=== PATIENT | female | born 1990 | race Caucasian/White ===

== ENCOUNTER 2016-09-12 13:22 | Emergency (ER) | payer OTHER ==
[2016-09-12 16:30] VITALS: BP 114/65
== END 2016-09-12 16:30 | disposition home or self-care (01) ==
LOC: ED 13:22
DX: J20.9 Acute bronchitis, unspecified (principal); E11.9 Type 2 diabetes mellitus without complications; J45.909 Unspecified asthma, uncomplicated; E66.01 Morbid (severe) obesity due to excess calories; Z88.0 Allergy status to penicillin; Z88.1 Allergy status to other antibiotic agents; Z88.5 Allergy status to narcotic agent
CPT/HCPCS: J7512; J7620

== ENCOUNTER 2017-01-28 16:38 | Emergency (ER) | payer OTHER ==
[2017-01-28 18:13] LABS: BASOPHIL % 1.1 % (0-2); PLATELET COUNT 281 x10^3mcL (130-400); RED CELL DISTRIBUTION WIDTH 15.3 % (11.5-14.5)
[2017-01-28 18:21] LABS: CALCIUM 9.1 mg/dL (8.5-10.1); CARBON DIOXIDE 21.3 mmol/L (21-32); CHLORIDE SERUM 110 mmol/L (98-107); CREATININE SERUM 0.8 mg/dL (0.6-1.0); GFR1 > 60 mL/min; GLUCOSE SERUM 135 mg/dL (74-106); POTASSIUM SERUM 3.5 mmol/L (3.5-5.1); SODIUM SERUM 146 mmol/L (136-145)
[2017-01-28 18:27] LABS: ALBUMIN 3.4 g/dL (3.4-5.0); ALKALINE PHOSPHATASE 89 U/L (46-116); ALT/SGPT 21 U/L (14-59); AST/SGOT 10 U/L (15-37); TOTAL PROTEIN, SERUM 7.6 g/dL (6.4-8.2)
[2017-01-28 21:18] VITALS: BP 107/68
== END 2017-01-28 21:18 | disposition home or self-care (01) ==
LOC: ED 16:38
PROVIDERS: Emergency Medicine
DX: J45.901 Unspecified asthma with (acute) exacerbation (principal); E11.9 Type 2 diabetes mellitus without complications; F41.9 Anxiety disorder, unspecified; K31.9 Disease of stomach and duodenum, unspecified; Z79.84 Long term (current) use of oral hypoglycemic drugs; Z79.899 Other long term (current) drug therapy; Z88.0 Allergy status to penicillin; Z88.1 Allergy status to other antibiotic agents; Z88.5 Allergy status to narcotic agent; Z88.8 Allergy status to other drugs, medicaments and biological substances; Z98.890 Other specified postprocedural states
CPT/HCPCS: 36415; 85378; J1885; J7613; J7644; Q0162

== ENCOUNTER 2017-06-10 20:40 | Emergency (ER) | payer OTHER ==
[~2017-06-10] VITALS: Ht 154.9 cm; Wt 88.9 kg
[2017-06-10 20:53] VITALS: Ht 154.9 cm; Wt 88.9 kg
[2017-06-10 23:49] VITALS: BP 120/78
== END 2017-06-10 23:49 | disposition home or self-care (01) ==
LOC: ED 20:40
DX: M54.9 Dorsalgia, unspecified (principal); M79.1 Myalgia; R03.0 Elevated blood-pressure reading, without diagnosis of hypertension; E11.9 Type 2 diabetes mellitus without complications; J45.909 Unspecified asthma, uncomplicated; Z88.8 Allergy status to other drugs, medicaments and biological substances; Z88.0 Allergy status to penicillin; Z88.1 Allergy status to other antibiotic agents; V89.2XXA Person injured in unspecified motor-vehicle accident, traffic, initial encounter; Y93.89 Activity, other specified; Y99.8 Other external cause status; Y92.89 Other specified places as the place of occurrence of the external cause
CPT/HCPCS: J1885

== ENCOUNTER 2017-06-23 16:36 | Emergency (ER) | payer OTHER ==
[~2017-06-23] VITALS: Ht 152.4 cm; Wt 90.7 kg
[2017-06-23 17:43] VITALS: Ht 152.4 cm; Wt 90.7 kg
[2017-06-23 20:24] VITALS: BP 132/83
== END 2017-06-23 20:24 | disposition home or self-care (01) ==
LOC: ED 16:36
DX: J45.901 Unspecified asthma with (acute) exacerbation (principal); B34.9 Viral infection, unspecified; E11.9 Type 2 diabetes mellitus without complications; Z88.0 Allergy status to penicillin; Z88.1 Allergy status to other antibiotic agents; Z88.5 Allergy status to narcotic agent; Z88.8 Allergy status to other drugs, medicaments and biological substances
CPT/HCPCS: 82962; J7512; J7613; J7644

== ENCOUNTER 2017-07-07 18:18 | Emergency (ER) | payer OTHER ==
[~2017-07-07] VITALS: Ht 154.9 cm; Wt 88.2 kg
[2017-07-07 19:22] VITALS: Ht 154.9 cm; Wt 88.2 kg
[2017-07-07 21:07] LABS: BASOPHIL % 0.7 % (0-2); PLATELET COUNT 211 x10^3mcL (130-400); RED CELL DISTRIBUTION WIDTH 14.2 % (11.5-14.5)
[2017-07-07 21:08] LABS: CALCIUM 8.9 mg/dL (8.5-10.1); CARBON DIOXIDE 22.7 mmol/L (21-32); CHLORIDE SERUM 106 mmol/L (98-107); CREATININE SERUM 0.7 mg/dL (0.6-1.0); GFR1 > 60 mL/min; GLUCOSE SERUM 127 mg/dL (74-106); POTASSIUM SERUM 3.9 mmol/L (3.5-5.1); SODIUM SERUM 140 mmol/L (136-145)
[2017-07-07 21:21] LABS: FREE T4 0.94 ng/dL (0.76-1.46)
[2017-07-07 22:02] VITALS: BP 142/89
[2017-07-08] MEDS ORDERED: GLIPIZIDE10 M2 PO (18:47)
[2017-07-08] MEDS ORDERED: MECLIZINE HYD12.5 MG (18:47)
[2017-07-08] MEDS ORDERED: PROAIR HFA8.5 GM IH (18:48)
[2017-07-08] MEDS ORDERED: TRAZODONE HCL1 POW (18:48)
[2017-07-08] MEDS ORDERED: HYDROXYZINE10 M1 (18:48)
[2017-07-08] MEDS ORDERED: ROBAXIN500 MG (18:49)
[2017-07-08] MEDS ORDERED: TOPAMAX100 MG PO (18:51)
== END 2017-07-07 22:02 | disposition home or self-care (01) ==
LOC: ED 18:18
PROVIDERS: Emergency Medicine
DX: R42 Dizziness and giddiness (principal); J32.9 Chronic sinusitis, unspecified; J45.909 Unspecified asthma, uncomplicated; F41.9 Anxiety disorder, unspecified; K64.9 Unspecified hemorrhoids; E11.43 Type 2 diabetes mellitus with diabetic autonomic (poly)neuropathy; K31.84 Gastroparesis; Z88.0 Allergy status to penicillin; Z88.1 Allergy status to other antibiotic agents; Z88.5 Allergy status to narcotic agent; Z91.041 Radiographic dye allergy status
CPT/HCPCS: 36415; 84439; 87804; J1885; J8597

== ENCOUNTER 2017-07-08 15:07 | Inpatient (IN) | payer OTHER ==
[~2017-07-08] VITALS: Ht 154.9 cm; Wt 79.5 kg
[2017-07-08 15:46] VITALS: Ht 154.9 cm; Wt 79.5 kg
[2017-07-08 17:10] LABS: BASOPHIL % 0.1 % (0-2); PLATELET COUNT 195 x10^3mcL (130-400); RED CELL DISTRIBUTION WIDTH 14.5 % (11.5-14.5)
[2017-07-08 17:14] LABS: UA SPECIFIC GRAVITY >=1.030 (1.005-1.035); microscopic required? YES; urine erythrocyte NEGATIVE (NEGATIVE)
[2017-07-08 17:23] LABS: CALCIUM 9.2 mg/dL (8.5-10.1); CARBON DIOXIDE 22.5 mmol/L (21-32); CHLORIDE SERUM 107 mmol/L (98-107); CREATININE SERUM 0.8 mg/dL (0.6-1.0); GFR1 > 60 mL/min; GLUCOSE SERUM 159 mg/dL (74-106); POTASSIUM SERUM 3.7 mmol/L (3.5-5.1); SODIUM SERUM 142 mmol/L (136-145)
[2017-07-08 17:27] LABS: ALKALINE PHOSPHATASE 97 U/L (46-116); ALT/SGPT 21 U/L (14-59); AST/SGOT 13 U/L (15-37); BILIRUBIN TOTAL 0.3 mg/dL (0.20-1.00); CHOLESTEROL 173 mg/dL (<200); HDL CHOLESTEROL 39 mg/dL (40-60); TOTAL PROTEIN, SERUM 7.4 g/dL (6.4-8.2)
[2017-07-08 17:29] LABS: ALBUMIN 3.3 g/dL (3.4-5.0)
[2017-07-08] MEDS ORDERED: GLIPIZIDE10 M2 PO (18:47)
[2017-07-08] MEDS ORDERED: MECLIZINE HYD12.5 MG (18:47)
[2017-07-08] MEDS ORDERED: TRAZODONE HCL1 POW (18:48)
[2017-07-08] MEDS ORDERED: PROAIR HFA8.5 GM IH (18:48)
[2017-07-08] MEDS ORDERED: HYDROXYZINE10 M1 (18:48)
[2017-07-08] MEDS ORDERED: ROBAXIN500 MG (18:49)
[2017-07-08] MEDS ORDERED: TOPAMAX100 MG PO (18:51)
[2017-07-08 20:13] LABS: CHOLESTEROL/HDL RATIO 4.4; MAGNESIUM 1.8 mg/dL (1.8-2.4); PHOSPHOROUS 4.6 mg/dL (2.5-4.9)
[2017-07-08 20:17] VITALS: BP 126/86
[2017-07-08 20:18] LABS: T3 TOTAL 1.9 ng/mL
[2017-07-08 20:24] VITALS: BP 132/85
[2017-07-08 20:25] LABS: FREE T4 0.94 ng/dL (0.76-1.46); FREE THYROXINE INDEX 2.9 ug/dL (1.4-4.5); T4(THYROXINE) 9.9 ug/dL (4.7-13.3)
[2017-07-09 05:01] VITALS: BP 117/61
[2017-07-09 06:01] VITALS: BP 107/68
[2017-07-09 06:21] LABS: BASOPHIL % 0.1 % (0-2); PLATELET COUNT 201 x10^3mcL (130-400); RED CELL DISTRIBUTION WIDTH 14.3 % (11.5-14.5)
[2017-07-09 06:37] LABS: CALCIUM 8.6 mg/dL (8.5-10.1); CARBON DIOXIDE 18.3 mmol/L (21-32); CHLORIDE SERUM 107 mmol/L (98-107); CREATININE SERUM 0.6 mg/dL (0.6-1.0); GFR1 > 60 mL/min; GLUCOSE SERUM 285 mg/dL (74-106); MAGNESIUM 1.6 mg/dL (1.8-2.4); PHOSPHOROUS 3.1 mg/dL (2.5-4.9); POTASSIUM SERUM 4.2 mmol/L (3.5-5.1); SODIUM SERUM 138 mmol/L (136-145)
[2017-07-09 09:10] VITALS: BP 114/62
[2017-07-09 12:31] VITALS: BP 119/79
[2017-07-09 18:09] VITALS: BP 109/63
[2017-07-09 19:52] LABS: CALCIUM 8.3 mg/dL (8.5-10.1); CARBON DIOXIDE 20.6 mmol/L (21-32); CHLORIDE SERUM 107 mmol/L (98-107); CREATININE SERUM 0.8 mg/dL (0.6-1.0); GFR1 > 60 mL/min; GLUCOSE SERUM 322 mg/dL (74-106); MAGNESIUM 1.8 mg/dL (1.8-2.4); POTASSIUM SERUM 3.6 mmol/L (3.5-5.1); SODIUM SERUM 139 mmol/L (136-145)
[2017-07-09 21:30] VITALS: BP 134/63
[2017-07-10 06:46] LABS: CALCIUM 8.4 mg/dL (8.5-10.1); CARBON DIOXIDE 20.8 mmol/L (21-32); CHLORIDE SERUM 108 mmol/L (98-107); CREATININE SERUM 0.8 mg/dL (0.6-1.0); GFR1 > 60 mL/min; GLUCOSE SERUM 248 mg/dL (74-106); PHOSPHOROUS 3.1 mg/dL (2.5-4.9); SODIUM SERUM 140 mmol/L (136-145)
[2017-07-10 06:52] LABS: PLATELET COUNT 194 x10^3mcL (130-400)
[2017-07-10 06:59] LABS: BASOPHIL % 0 % (0-2); RED CELL DISTRIBUTION WIDTH 14.9 % (11.5-14.5)
[2017-07-10 10:00] VITALS: BP 121/76
[2017-07-10] MEDS ORDERED: COUGH100 MG/5 M PO (10:32)
[2017-07-10] MEDS ORDERED: MEDDP PO (10:33)
[2017-07-10] MEDS ORDERED: GLU10XL PO (10:34)
[2017-07-10] MEDS ORDERED: LEVAQUIN750 MG PO (10:38)
[2017-07-10] MEDS ORDERED: LAC PO (10:39)
[2017-07-10] MEDS ORDERED: NOVOLOG FLEX100 U/M1 SC (10:56)
[2017-07-10] MEDS ORDERED: ACCU-CHEK1 EACH MC (10:57)
[2017-07-10 12:32] VITALS: BP 121/76
[2017-07-10 13:37] VITALS: BP 113/68
[2017-07-10 17:36] VITALS: BP 112/99
[2017-07-10] MEDS ORDERED: HUMULIN R100 U/1 M1 SC (18:01)
[2017-07-10] MEDS ORDERED: QVAR0.08 MG/Ac IH ×2 (18:59→19:02)
== END 2017-07-10 19:19 | disposition home or self-care (01) | DRG 141 ==
LOC: ED 15:07 → DU 18:37
PROVIDERS: Emergency Medicine; Family Medicine
DX: J45.901 Unspecified asthma with (acute) exacerbation (principal); N17.0 Acute kidney failure with tubular necrosis; E44.1 Mild protein-calorie malnutrition; E11.65 Type 2 diabetes mellitus with hyperglycemia; E86.0 Dehydration; N39.0 Urinary tract infection, site not specified; J32.9 Chronic sinusitis, unspecified; R80.9 Proteinuria, unspecified; E78.5 Hyperlipidemia, unspecified; G40.909 Epilepsy, unspecified, not intractable, without status epilepticus; E66.9 Obesity, unspecified; Z68.36 Body mass index [BMI] 36.0-36.9, adult
CPT/HCPCS: 82962; 83880; 84439; 87046; 87046-59; 87804; 94150; J1644; J1815; J1956; J2405; J2920; J2930; J7030; J7613; J7620; J7626; J8597; Q0092

== ENCOUNTER 2017-09-10 12:55 | Emergency (ER) | payer OTHER ==
[~2017-09-10] VITALS: Ht 154.9 cm; Wt 84.8 kg
[~2017-09-10 12:55] MED LIST: ACCU-CHEK1 EACH MC; COUGH100 MG/5 M PO; GLIPIZIDE10 M2 PO; GLU10XL PO; HUMULIN R100 U/1 M1 SC; HYDROXYZINE10 M1; LAC PO; LEVAQUIN750 MG PO; MECLIZINE HYD12.5 MG; MEDDP PO; NOVOLOG FLEX100 U/M1 SC; PROAIR HFA8.5 GM IH; QVAR0.08 MG/Ac IH; ROBAXIN500 MG; TOPAMAX100 MG PO; TRAZODONE HCL1 POW
[2017-09-10 13:07] VITALS: Ht 154.9 cm; Wt 84.8 kg
[2017-09-10 13:44] LABS: BASOPHIL % 0.5 % (0-2); PLATELET COUNT 272 x10^3mcL (130-400)
[2017-09-10 13:47] LABS: UA SPECIFIC GRAVITY >=1.030 (1.005-1.035); microscopic required? YES; urine erythrocyte 3+ (NEGATIVE)
[2017-09-10 13:49] LABS: RED CELL DISTRIBUTION WIDTH 15.8 % (11.5-14.5)
[2017-09-10 14:02] LABS: CALCIUM 9.2 mg/dL (8.5-10.1); CARBON DIOXIDE 23.5 mmol/L (21-32); CHLORIDE SERUM 102 mmol/L (98-107); CREATININE SERUM 0.7 mg/dL (0.6-1.0); GFR1 > 60 mL/min; GLUCOSE SERUM 174 mg/dL (74-106); POTASSIUM SERUM 3.7 mmol/L (3.5-5.1); SODIUM SERUM 140 mmol/L (136-145)
[2017-09-10 14:59] VITALS: BP 116/66
== END 2017-09-10 14:59 | disposition home or self-care (01) ==
LOC: ED 12:55
PROVIDERS: Emergency Medicine
DX: R51 Headache (principal); R10.9 Unspecified abdominal pain; R11.2 Nausea with vomiting, unspecified; H53.149 Visual discomfort, unspecified; J45.909 Unspecified asthma, uncomplicated; E11.9 Type 2 diabetes mellitus without complications; Z88.0 Allergy status to penicillin; Z88.1 Allergy status to other antibiotic agents; Z88.6 Allergy status to analgesic agent; Z88.8 Allergy status to other drugs, medicaments and biological substances; Z87.19 Personal history of other diseases of the digestive system
CPT/HCPCS: 82962; J1200; J2765; J7030

== ENCOUNTER 2017-11-13 23:24 | Emergency (ER) | payer OTHER ==
[~2017-11-13] VITALS: Ht 154.9 cm; Wt 84.9 kg
[2017-11-13 23:40] VITALS: Ht 154.9 cm; Wt 84.9 kg
[2017-11-14 01:40] LABS: CALCIUM 8.6 mg/dL (8.5-10.1); CARBON DIOXIDE 28.7 mmol/L (21-32); CHLORIDE SERUM 103 mmol/L (98-107); CREATININE SERUM 0.6 mg/dL (0.6-1.0); GFR1 > 60 mL/min; GLUCOSE SERUM 152 mg/dL (74-106); POTASSIUM SERUM 3.9 mmol/L (3.5-5.1); SODIUM SERUM 138 mmol/L (136-145)
[2017-11-14 01:45] LABS: ALBUMIN 3.1 g/dL (3.4-5.0); ALKALINE PHOSPHATASE 78 U/L (46-116); ALT/SGPT 20 U/L (14-59); AST/SGOT 22 U/L (15-37); BILIRUBIN TOTAL 0.3 mg/dL (0.20-1.00); TOTAL PROTEIN, SERUM 6.8 g/dL (6.4-8.2)
[2017-11-14 02:19] LABS: BASOPHIL % 0.3 % (0-2); PLATELET COUNT 237 x10^3mcL (130-400)
[2017-11-14 02:20] LABS: RED CELL DISTRIBUTION WIDTH 14.6 % (11.5-14.5)
[2017-11-14 03:25] VITALS: BP 121/70
== END 2017-11-14 03:25 | disposition home or self-care (01) ==
LOC: ED 23:24
PROVIDERS: Emergency Medicine
DX: H83.09 Labyrinthitis, unspecified ear (principal); K21.9 Gastro-esophageal reflux disease without esophagitis; G44.209 Tension-type headache, unspecified, not intractable; E11.9 Type 2 diabetes mellitus without complications; Z88.0 Allergy status to penicillin; Z88.6 Allergy status to analgesic agent; Z88.5 Allergy status to narcotic agent; Z91.018 Allergy to other foods
CPT/HCPCS: 36415; J0780; J1885; J8597

== ENCOUNTER 2018-01-28 11:51 | Emergency (ER) | payer OTHER ==
[~2018-01-28] VITALS: Ht 154.9 cm; Wt 86.4 kg
[2018-01-28 11:56] VITALS: Ht 154.9 cm; Wt 86.4 kg
[2018-01-28 12:28] LABS: BASOPHIL % 0.4 % (0-2); PLATELET COUNT 284 x10^3mcL (130-400)
[2018-01-28 12:30] LABS: RED CELL DISTRIBUTION WIDTH 14.9 % (11.5-14.5)
[2018-01-28 15:03] VITALS: BP 119/65
== END 2018-01-28 15:03 | disposition home or self-care (01) ==
LOC: ED 11:51
PROVIDERS: Emergency Medicine
DX: N94.6 Dysmenorrhea, unspecified (principal); R10.2 Pelvic and perineal pain; E11.65 Type 2 diabetes mellitus with hyperglycemia; J45.909 Unspecified asthma, uncomplicated; Z88.0 Allergy status to penicillin; Z88.5 Allergy status to narcotic agent; Z91.010 Allergy to peanuts; Z91.018 Allergy to other foods
CPT/HCPCS: 36415; Q0092

== ENCOUNTER 2018-03-03 16:03 | Emergency (ER) | payer OTHER ==
[~2018-03-03] VITALS: Ht 154.9 cm; Wt 86.6 kg
[2018-03-03 18:26] LABS: UA SPECIFIC GRAVITY 1.015 (1.005-1.035); microscopic required? YES; urine erythrocyte 3+ (NEGATIVE)
[2018-03-03 20:11] VITALS: BP 129/74
== END 2018-03-03 20:11 | disposition home or self-care (01) ==
LOC: ED 16:03
PROVIDERS: Emergency Medicine
DX: L23.9 Allergic contact dermatitis, unspecified cause (principal); L72.8 Other follicular cysts of the skin and subcutaneous tissue; J45.909 Unspecified asthma, uncomplicated; Z88.0 Allergy status to penicillin; Z88.1 Allergy status to other antibiotic agents; Z88.5 Allergy status to narcotic agent; Z91.041 Radiographic dye allergy status; Z91.010 Allergy to peanuts; Z91.018 Allergy to other foods
CPT/HCPCS: 82962

== ENCOUNTER 2018-09-14 15:33 | Emergency (ER) | payer OTHER ==
[~2018-09-14] VITALS: Ht 154.9 cm; Wt 84.8 kg
[2018-09-14 15:46] VITALS: Ht 154.9 cm; Wt 84.8 kg
[2018-09-14 16:40] LABS: BASOPHIL % 0.9 % (0-2); PLATELET COUNT 255 x10^3mcL (130-400)
[2018-09-14 16:42] LABS: RED CELL DISTRIBUTION WIDTH 15.1 % (11.5-14.5)
[2018-09-14 16:46] LABS: CALCIUM 8.5 mg/dL (8.5-10.1); CARBON DIOXIDE 25.4 mmol/L (21-32); CHLORIDE SERUM 104 mmol/L (98-107); CREATININE SERUM 0.7 mg/dL (0.6-1.0); GFR1 > 60 mL/min; GLUCOSE SERUM 298 mg/dL (74-106); POTASSIUM SERUM 4.1 mmol/L (3.5-5.1); SODIUM SERUM 138 mmol/L (136-145)
[2018-09-14 16:51] LABS: ALKALINE PHOSPHATASE 88 U/L (46-116); ALT/SGPT 21 U/L (14-59); AST/SGOT 15 U/L (15-37); BILIRUBIN TOTAL 0.28 mg/dL (0.20-1.00); TOTAL PROTEIN, SERUM 7.2 g/dL (6.4-8.2)
[2018-09-14 17:00] LABS: ALBUMIN 3.1 g/dL (3.4-5.0)
[2018-09-14 17:41] VITALS: BP 119/73
== END 2018-09-14 17:54 | disposition home or self-care (01) ==
LOC: ED 15:33
PROVIDERS: Emergency Medicine
DX: S33.5XXA Sprain of ligaments of lumbar spine, initial encounter (principal); J45.909 Unspecified asthma, uncomplicated; E11.9 Type 2 diabetes mellitus without complications; E11.43 Type 2 diabetes mellitus with diabetic autonomic (poly)neuropathy; K31.84 Gastroparesis; F41.9 Anxiety disorder, unspecified; F32.9 Major depressive disorder, single episode, unspecified; Z88.6 Allergy status to analgesic agent; Z88.1 Allergy status to other antibiotic agents; Z91.010 Allergy to peanuts; Z91.018 Allergy to other foods; Z88.0 Allergy status to penicillin; Z98.890 Other specified postprocedural states; X58.XXXA Exposure to other specified factors, initial encounter; Y93.89 Activity, other specified; Y92.89 Other specified places as the place of occurrence of the external cause; Y99.8 Other external cause status
CPT/HCPCS: 82962; J1815; J1885; J7030

== ENCOUNTER 2019-01-27 19:57 | Emergency (ER) | payer OTHER ==
[~2019-01-27] VITALS: Ht 154.9 cm; Wt 82.6 kg
[2019-01-27 20:15] VITALS: Ht 154.9 cm; Wt 82.6 kg
[2019-01-27 22:15] VITALS: BP 137/83
== END 2019-01-27 22:15 | disposition home or self-care (01) ==
LOC: ED 19:57
DX: R10.13 Epigastric pain (principal); R14.0 Abdominal distension (gaseous); R11.0 Nausea; R56.9 Unspecified convulsions; R51 Headache; J45.909 Unspecified asthma, uncomplicated; E11.9 Type 2 diabetes mellitus without complications; F41.9 Anxiety disorder, unspecified; F32.9 Major depressive disorder, single episode, unspecified; Z88.0 Allergy status to penicillin; Z88.1 Allergy status to other antibiotic agents; Z88.8 Allergy status to other drugs, medicaments and biological substances; Z91.010 Allergy to peanuts; Z91.018 Allergy to other foods; Z98.890 Other specified postprocedural states

== ENCOUNTER 2019-04-08 09:00 | Emergency (ER) | payer OTHER ==
[~2019-04-08] VITALS: Ht 154.9 cm; Wt 81.2 kg
[2019-04-08 09:16] VITALS: BP 116/78
== END 2019-04-08 11:20 | disposition home or self-care (01) ==
LOC: ED 09:00
DX: S93.401A Sprain of unspecified ligament of right ankle, initial encounter (principal); S93.601A Unspecified sprain of right foot, initial encounter; J45.909 Unspecified asthma, uncomplicated; E11.9 Type 2 diabetes mellitus without complications; F41.9 Anxiety disorder, unspecified; F32.9 Major depressive disorder, single episode, unspecified; Z98.890 Other specified postprocedural states; Z91.018 Allergy to other foods; Z88.0 Allergy status to penicillin; Z88.5 Allergy status to narcotic agent; Z91.041 Radiographic dye allergy status; Z88.6 Allergy status to analgesic agent; X50.1XXA Overexertion from prolonged static or awkward postures, initial encounter; Y93.89 Activity, other specified; Y92.89 Other specified places as the place of occurrence of the external cause; Y99.8 Other external cause status
CPT/HCPCS: Q0092

== ENCOUNTER 2019-07-19 18:12 | Emergency (ER) | payer OTHER ==
[~2019-07-19] VITALS: Ht 152.4 cm; Wt 82.6 kg
[2019-07-19 18:42] VITALS: Ht 152.4 cm; Wt 82.6 kg
[2019-07-19 23:17] VITALS: BP 125/85
== END 2019-07-19 23:17 | disposition home or self-care (01) ==
LOC: ED 18:12
DX: J06.9 Acute upper respiratory infection, unspecified (principal); J45.909 Unspecified asthma, uncomplicated; E11.9 Type 2 diabetes mellitus without complications; Z98.890 Other specified postprocedural states; Z91.018 Allergy to other foods; Z88.0 Allergy status to penicillin; Z88.8 Allergy status to other drugs, medicaments and biological substances; Z91.041 Radiographic dye allergy status; Z91.010 Allergy to peanuts
CPT/HCPCS: 82962; 87804; J1885; J7613; Q0092

== ENCOUNTER 2020-04-13 11:29 | Emergency (ER) | payer OTHER ==
[~2020-04-13] VITALS: Ht 152.4 cm; Wt 78.9 kg
[2020-04-13 11:46] VITALS: Ht 152.4 cm; Wt 78.9 kg
[2020-04-13 12:24] LABS: CALCIUM 8.9 mg/dL (8.5-10.1); CARBON DIOXIDE 26.8 mmol/L (21-32); CHLORIDE SERUM 104 mmol/L (98-107); CREATININE SERUM 0.5 mg/dL (0.6-1.0); GFR1 > 60 mL/min; GLUCOSE SERUM 114 mg/dL (74-106); POTASSIUM SERUM 4.1 mmol/L (3.5-5.1); SODIUM SERUM 138 mmol/L (136-145)
[2020-04-13 12:25] LABS: BASOPHIL % 0.6 % (0-2); PLATELET COUNT 289 x10^3mcL (130-400); RED CELL DISTRIBUTION WIDTH 14.9 % (11.5-14.5)
[2020-04-13 12:33] LABS: ALBUMIN 3.5 g/dL (3.4-5.0); ALKALINE PHOSPHATASE 66 U/L (46-116); ALT/SGPT 19 U/L (14-59); AMYLASE 68 U/L (25-115); AST/SGOT 20 U/L (15-37); LIPASE 159 IU/L (73-393); TOTAL PROTEIN, SERUM 7.5 g/dL (6.4-8.2)
[2020-04-13 12:38] LABS: UA SPECIFIC GRAVITY >=1.030 (1.005-1.035); microscopic required? YES; urine erythrocyte TRACE (NEGATIVE)
[2020-04-13 12:50] LABS: AMPHETAMINE QUAL UR NONE DETECTED (See below)
[2020-04-13 13:16] VITALS: BP 101/60
== END 2020-04-13 13:16 | disposition home or self-care (01) ==
LOC: ED 11:29
PROVIDERS: Emergency Medicine
DX: N83.202 Unspecified ovarian cyst, left side (principal); J45.909 Unspecified asthma, uncomplicated; E11.9 Type 2 diabetes mellitus without complications; Z88.0 Allergy status to penicillin; Z91.018 Allergy to other foods; Z88.1 Allergy status to other antibiotic agents; Z91.041 Radiographic dye allergy status; Z91.010 Allergy to peanuts; Z88.6 Allergy status to analgesic agent
CPT/HCPCS: 36600; J1885; J2405; J7030

== ENCOUNTER 2020-05-12 10:00 | Emergency (ER) | payer OTHER ==
[2020-05-12 11:13] VITALS: BP 116/82
[2020-05-12 12:09] LABS: UA SPECIFIC GRAVITY >=1.030 (1.005-1.035); microscopic required? YES; urine erythrocyte 3+ (NEGATIVE)
== END 2020-05-12 14:30 | disposition home or self-care (01) ==
LOC: ED 10:00
PROVIDERS: Emergency Medicine
DX: M79.642 Pain in left hand (principal); J45.909 Unspecified asthma, uncomplicated; E11.9 Type 2 diabetes mellitus without complications; N94.6 Dysmenorrhea, unspecified
CPT/HCPCS: A4570

== ENCOUNTER 2020-07-08 17:34 | Emergency (ER) | payer OTHER ==
[~2020-07-08] VITALS: Ht 154.9 cm; Wt 79.8 kg
[2020-07-08 17:39] VITALS: BP 128/85; Ht 154.9 cm; Wt 79.8 kg
[2020-07-08 21:50] LABS: BASOPHIL % 1.1 % (0.2-1.3); PLATELET COUNT 305 x10^3mcL (179-408)
[2020-07-08 21:52] LABS: RED CELL DISTRIBUTION WIDTH 15.4 % (12.3-17.7)
[2020-07-08 21:54] LABS: CALCIUM 9.7 mg/dL (8.5-10.1); CHLORIDE SERUM 97 mmol/L (98-107); CREATININE SERUM 0.5 mg/dL (0.6-1.0); GFR1 > 60 mL/min; GLUCOSE SERUM 159 mg/dL (74-106); POTASSIUM SERUM 3.9 mmol/L (3.5-5.1); SODIUM SERUM 131 mmol/L (136-145)
[2020-07-08 21:59] LABS: ALBUMIN 3.4 g/dL (3.4-5.0); ALKALINE PHOSPHATASE 73 U/L (46-116); ALT/SGPT 19 U/L (14-59); AST/SGOT 7 U/L (15-37); TOTAL PROTEIN, SERUM 7.9 g/dL (6.4-8.2)
== END 2020-07-08 22:54 | disposition home or self-care (01) ==
LOC: ED 17:34
PROVIDERS: Emergency Medicine
DX: N83.202 Unspecified ovarian cyst, left side (principal); J45.909 Unspecified asthma, uncomplicated; E11.9 Type 2 diabetes mellitus without complications; Z98.890 Other specified postprocedural states; Z88.0 Allergy status to penicillin; Z88.5 Allergy status to narcotic agent; Z91.010 Allergy to peanuts; Z88.8 Allergy status to other drugs, medicaments and biological substances; Z91.018 Allergy to other foods

== ENCOUNTER 2020-08-16 18:16 | Emergency (ER) | payer OTHER ==
[~2020-08-16] VITALS: Ht 152.4 cm; Wt 81.6 kg
[2020-08-16 18:20] VITALS: Ht 152.4 cm; Wt 81.6 kg
[2020-08-16 20:39] VITALS: BP 127/76
[2020-08-16] MEDS ORDERED: NAPROSYN500 MG PO (20:41)
== END 2020-08-16 20:55 | disposition home or self-care (01) ==
LOC: ED 18:16
DX: R10.2 Pelvic and perineal pain (principal); G89.29 Other chronic pain; J45.909 Unspecified asthma, uncomplicated; E11.9 Type 2 diabetes mellitus without complications; Z98.890 Other specified postprocedural states; Z88.0 Allergy status to penicillin; Z88.1 Allergy status to other antibiotic agents; Z88.8 Allergy status to other drugs, medicaments and biological substances; Z91.010 Allergy to peanuts
CPT/HCPCS: 82962; J1885